=== PATIENT | male | born 1965 | race Asian ===

== ENCOUNTER → 2024-07-29 | Day surgery (SDC) | payer OTHER ==
[~2024-07-29] MED LIST: LIDOCAINE HCL 2% LOCAL INJ 5 ML SDV VIAL INJ ONE; MIDAZOLAM HCL 2 MG/2 ML VIAL ONE; PROPOFOL IV EMULSION 10 MG/ML 20 ML VIAL ONE; PROPOFOL IV EMULSION 50 ML IV ONE
[2024-07-29] MEDS: LACTATED RINGER'S 1,000 ML ONE (12:38)
[2024-07-29 15:46] VITALS: TEMP 97.2
[2024-07-29 16:00] VITALS: BP 140/80; PULSE 60; RESP 16; O2SAT 97
== END | disposition home or self-care (01) ==
LOC: OR 12:03
PROVIDERS: ATTEND Internal Medicine Gastroenterology
DX: Z12.11 Encounter for screening for malignant neoplasm of colon (principal); D12.8 Benign neoplasm of rectum; K64.8 Other hemorrhoids; Z71.3 Dietary counseling and surveillance; R03.0 Elevated blood-pressure reading, without diagnosis of hypertension; Z71.89 Other specified counseling; Z01.810 Encounter for preprocedural cardiovascular examination; Z68.26 Body mass index [BMI] 26.0-26.9, adult
CPT/HCPCS: 45385; 93005; J2250; J2704; J7121; 45384; J2003